=== PATIENT | female | born 1990 | race Caucasian/White ===

== ENCOUNTER → 2018-01-16 16:30 | Outpatient (CLI) | payer OTHER, SELFPAY ==
--- NOTE | 2018-01-16 16:36 | CT_ITS ---
STUDY: CT MAXILLOFACIAL SINUSES REASON FOR EXAM: Female, 27 years old. Maxillary sinusitis RADIATION DOSAGE (If Supplied By Facility): CTDIvol = ( 33.06 ) mGy, DLP = ( 850.38 ) mGycm TECHNIQUE: The patient was scanned in a multi detector CT scanner. High resolution axial imaging was performed without the administration of intravenous contrast material. Sagittal and coronal images were reconstructed. Individualized dose optimization techniques were used for this CT. COMPARISON: None. FINDINGS: FRONTAL SINUSES: Not pneumatized consistent with normal developmental variant ETHMOIDAL SINUSES: There is mild mucosal thickening within the left anterior and mid ethmoid air cells without air-fluid levels. The right ethmoid air cells are clear. MAXILLARY SINUSES: There is minimal mucosal thickening of the medial wall the right maxillary sinus without air-fluid level. Left maxillary sinus is well aerated without appreciable mucosal thickening SPHENOIDAL SINUSES: There is mild mucosal thickening of left sphenoid sinus. There is patency of the bilateral maxillary infundibuli with normal uncinate processes, ethmoid bullae, and hiatus semilunaris. There is paradoxical configuration of the middle turbinates in association with lanny bullosa deformities. Normal bilateral inferior turbinates. Normal midline nasal septum. There is patency of the bilateral nasal airways. The visualized osseous structures are normal. The visualized bilateral orbital contents are normal. CT/Sinus/Facial Bone IMPRESSION: Minor right maxillary and left ethmoid and sphenoid sinus disease Electronically Signed: Shawn Razo MD at 23:28 EDT , Service support ,
== END ==
PROVIDERS: Family Provider Family Medicine; PCP Family Medicine; Visit Provider Otolaryngology
DX: J32.9 Chronic sinusitis, unspecified (principal)
CPT/HCPCS: 70486

== ENCOUNTER → 2018-03-27 11:41 | Outpatient (CLI) | payer OTHER, SELFPAY ==
[2018-04-01 09:11] LABS: HPV Reflexed? NOT INDICATED
== END ==
PROVIDERS: Visit Provider Obstetrics & Gynecology
DX: Z12.4 Encounter for screening for malignant neoplasm of cervix (principal)
CPT/HCPCS: 88175; G0145

== ENCOUNTER → 2019-11-25 | Outpatient (CLI) | payer BC, SELFPAY ==
[2019-11-25 18:20] LABS: Chlamydia Trachomatis by PCR Negative (Negative); Neisserai gonorrhoeae by PCR Negative (Negative); Probe Check PASS; Sample Adequacy Control PASS; Specimen Processing Control PASS
== END | disposition home or self-care (01) ==
LOC: LABSPEC 14:25
PROVIDERS: PCP Family Medicine; Visit Provider Obstetrics & Gynecology
DX: Z11.3 Encounter for screening for infections with a predominantly sexual mode of transmission (principal)
CPT/HCPCS: 87491; 87591

== ENCOUNTER → 2019-12-23 10:18 | Outpatient (CLI) | payer BC, SELFPAY | PROVIDERS: PCP Family Medicine; Referring Provider Obstetrics & Gynecology; Visit Provider Obstetrics & Gynecology | DX: O26.899 Other specified pregnancy related conditions, unspecified trimester (principal); R19.7 Diarrhea, unspecified; Z3A.09 9 weeks gestation of pregnancy | CPT/HCPCS: 87177; 87209; 87493; 87506 ==

== ENCOUNTER → 2019-12-31 | Outpatient (CLI) | payer BC, SELFPAY ==
[2019-12-31 17:51] LABS: Absolute Lymphocyte Count 2.42 X10^3/uL (0.83-4.51); Absolute Neutrophil Count 5.4 X10^3/uL (2.0-7.7); Basophil# 0.02 X10^3/uL; Basophil% 0.2 % (0-1); Eosinophil# 0.03 X10^3/uL; Eosinophils% 0.4 % (0-5); Hematocrit 35.5 % (37-47); Hemoglobin 12.3 g/dL (12.0-15.0); Lymphocyte # 2.42 X10^3/ul (4.0); Mean Corp Hgb Conc 34.6 g/dL (32-36); Mean Corpuscular Hgb 31.7 pg (27.0-32.0); Mean Corpuscular Volume 91.5 fL (81-99); Mean Platelet Vol. 10.2 fl (6.2-12.0); Monocyte# 0.41 X10^3/uL; Monocyte% 4.9 % (0-10); NRBC Flagged by Analyzer 0 % (0-5); Neutrophil # 5.44 X10^3/uL (2.7-7.7); Neutrophil % 65.3 % (47-70); Platelet Count 300 K/mm3 (150-450); RBC Distribution Width CV 11.6 % (11.6-14.6); RBC Distribution Width SD 38.7 fl (35.1-43.9); Red Blood Count 3.88 M/mm3 (4.2-5.4); White Blood Count 8.3 K/mm3 (4.4-11.0)
[2019-12-31 19:20] LABS: COTININE Drug Screen Negative (<200 ng/mL)
[2020-01-01 08:55] LABS: Hepatitis B Surface Antigen Non-Reactive (Nonreactive); Rubella IgG 153.4 IU/mL
[2020-01-04 17:54] LABS: Thyroid Stim Hormone (TSH) 0.58 uIU/mL (0.358-3.74)
[2020-01-05 09:49] LABS: HIV - WCH Non-Reactive (Nonreactive); Hepatitis C Antibody Non-Reactive (Nonreactive)
[2020-01-07 00:52] LABS: Prenatal RPR NONREACTIVE (NONREACTIVE)
== END | disposition home or self-care (01) ==
PROVIDERS: PCP Family Medicine; Referring Provider Obstetrics & Gynecology; Visit Provider Obstetrics & Gynecology
DX: Z34.81 Encounter for supervision of other normal pregnancy, first trimester (principal)
CPT/HCPCS: 80307; 84443; 85025; 86703; 86762; 86803; 86850; 86900; 86901; 87340

== ENCOUNTER → 2020-04-27 09:39 | Outpatient (CLI) | payer BC, SELFPAY ==
[2020-04-27 10:50] LABS: Hematocrit 34.2 % (37-47); Hemoglobin 11.3 g/dL (12.0-15.0); Mean Corpuscular Hgb 32.3 pg (27.0-32.0); Mean Corpuscular Volume 97.7 fL (81-99); Mean Platelet Vol. 9.8 fl (6.2-12.0); Platelet Count 280 K/mm3 (150-450); RBC Distribution Width CV 12.1 % (11.6-14.6); White Blood Count 10.4 K/mm3 (4.4-11.0)
[2020-04-27 10:57] LABS: Glucose Challenge Gest 1H 50g 100 mg/dL (70-140)
== END ==
PROVIDERS: PCP Family Medicine; Visit Provider Obstetrics & Gynecology
DX: Z34.83 Encounter for supervision of other normal pregnancy, third trimester (principal)
CPT/HCPCS: 36415; 82950; 85027

== ENCOUNTER → 2020-06-08 10:53 | Outpatient (CLI) | payer BC, SELFPAY ==
[2020-06-08 11:37] LABS: Fetal Fibronectin Negative
== END ==
PROVIDERS: PCP Family Medicine; Visit Provider Obstetrics & Gynecology
DX: O26.899 Other specified pregnancy related conditions, unspecified trimester (principal); Z3A.00 Weeks of gestation of pregnancy not specified
CPT/HCPCS: 82731

== ENCOUNTER → 2020-06-29 13:45 | Outpatient (CLI) | payer BC, SELFPAY | PROVIDERS: PCP Family Medicine; Visit Provider Obstetrics & Gynecology | DX: Z36.85 Encounter for antenatal screening for Streptococcus B (principal) | CPT/HCPCS: 87077; 87081; 87186 ==

== ENCOUNTER → 2020-07-15 09:25 | Outpatient (CLI) | payer BC, SELFPAY | PROVIDERS: Referring Provider Obstetrics & Gynecology; Visit Provider Obstetrics & Gynecology | DX: Z11.59 Encounter for screening for other viral diseases (principal) | CPT/HCPCS: 87635; C9803; U0003 ==

== ENCOUNTER 2020-07-19 07:00 | Inpatient (IN) | payer BC, SELFPAY ==
[2020-07-19] VITALS (44 sets, daily range): BP systolic 90–133; BP diastolic 53–82; PULSE 56–91; TEMP 36.4–37.2; O2SAT 95–100; BMI 35.9
[2020-07-19] MEDS: 0.9% Saline Lock 10 ML Syringe IV ×4 (08:15→22:26)
[2020-07-19] MEDS: miSOPROStol 25 MCG TABLET PO ×2 (08:32→12:47)
[2020-07-19 08:40] LABS: Absolute Lymphocyte Count 2.13 X10^3/uL (0.83-4.51); Absolute Neutrophil Count 8.6 X10^3/uL (2.0-7.7); Basophil# 0.03 X10^3/uL; Basophil% 0.3 % (0-1); Eosinophil# 0.04 X10^3/uL; Eosinophils% 0.3 % (0-5); Hematocrit 32.6 % (37-47); Lymphocyte # 2.13 X10^3/ul (4.0); Lymphocyte % 18.3 % (19-41); Mean Corp Hgb Conc 33.7 g/dL (32-36); Mean Corpuscular Hgb 32.2 pg (27.0-32.0); Mean Corpuscular Volume 95.3 fL (81-99); Mean Platelet Vol. 10.6 fl (6.2-12.0); Monocyte# 0.69 X10^3/uL; Monocyte% 5.9 % (0-10); NRBC Flagged by Analyzer 0 % (0-5); Neutrophil # 8.64 X10^3/uL (2.7-7.7); Neutrophil % 74.4 % (47-70); Platelet Count 279 K/mm3 (150-450); RBC Distribution Width CV 12.1 % (11.6-14.6); RBC Distribution Width SD 42.2 fl (35.1-43.9); Red Blood Count 3.42 M/mm3 (4.2-5.4); White Blood Count 11.6 K/mm3 (4.4-11.0)
--- NOTE | 2020-07-19 09:27 | PCM.HP.BLA ---
History and Physical Date of Admission: 07/19/20 AC ANTEPARTUM RECORD - HISTORY AND PHYSICAL (07/19/2020) Name: RUPAL [place] OB Physician: MARIA LUISA [place]'s Physician: [facility] ...................................................................... : 1990 Age: 29 Address: [address] [place] [address] Phone: [phone] Insurance Carrier: DAMI [employer] [facility] [id number] Emergency Contact: PRISCILLA POWELL [phone] ...................................................................... Final TRAVIS: 07/24/20 By Ultrasound: 10 weeks 4 days History of This : This is a 29-year-old G1, P0 who presents for induction at 39 weeks and 2 days gestation. PARITY: (G-Total Pregnancies P-Fullterm,Premature,Induced AB,Spont AB, Ectopics, Multiple,Living) TRAVIS CONFIRMATION: By LMP: 10/18/19 Final TRAVIS: 07/24/20 OB PROBLEM LIST: Anxiety, hx of depression -Watch closely FOB was born with a hole in his lung? Likely to bottle feed Nausea and emesis - Did not like Zofran but sx improved with Phenergan PCN intolerance Wants MSAFP testing, declines CF Watch weight! 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 Illicit Drug Use - denies use of street drugs Sexual Activity - Hours Worked - 40 hours per week Spouse-Sig Other Name - Rex Flood Spouse-Sig Other Occupation - Retail Children Name(s) - na PRIOR DELIVERY HISTORY DEL DATE GEST LAB WT LB WT OZ TYPE ANES LABOR TX ANTEPARTUM FLOW CHART VISIT GE RTC FU F F NH U U DATE WK MD WKS HT PN HR M SS BP ED WT NH GL D EF ST __ ____ ___ __ __ ___ __ __ __ ___ __ __ __ ___ __ Jun JM 6 38 V + + 122/76 1+ 207 tr - 14 Jun JMW 1 37 V + + 120/84 1+ 202 tr - S 07 Jun JMW 1 36 V + + 126/84 sl 201 tr - 1 50 -2 01 Jun 35 JMW 1 35 + + 110/80 sl 198 tr - 16 May JMW 2 33 V + + 112/72 0 190 tr - ft 50 -2 May 22 JMW 3 31 + + 106/82 0 187 - - 05 May 19 JMW 3 27 + + 122/76 0 182 - - Apr 14 JMW 4 24 + + 122/70 0 176 - - 10 Mar 11 JMW 4 20 + + 110/72 0 169 tr - February 04 JMW 4 15 + US 118/76 0 166 - - February 03 JMW 4 15 + 98/60 0 167 - - Dec 31 JMW 4 + O 124/64 0 165 - - ANTEPARTUM NOTE(S): Jul 14 2020: Jul 06 2020: see note, Good FM Jun 29 2020: Jun 23 2020: feeling well., Good FM Jun 08 2020: FFN done. Ctxs unchanging and mild. May 19 2020: 1st trimester sx's Apr 27 2020: CBC,OGCT Today,Good FM,Feeling Well Mar 30 2020: Glucola/Instructions Given,Good FM Mar 02 2020: Sono Today,Good FM,Feeling Well Feb 01 2020: Sono Today due to brown discharge,Feeling Well Jan 29 2020: see note, Doing Well Dec 31 2019: US OK COMPREHENSIVE ANTEPARTUM NOTE(S): Jul 14 2020: Rupal is being seen for PNV. Pt is 38 w + 4 d.. She complains of feeling very uncomfortable and vaginal pressure. She has 1+ edema in feet and hands . + FM. States that she has a high sensitivity to Penicillin she has N with it. SVE offered PT declined. No other complaints or concerns expressed today. LJW Jul 14 2020: 38wk, maternal discomfort. Leg swelling. Desires 39wk IOL, scheduled for 07/18/20 at 1900. COVID testing ordered. Jul 12 2020: H taken to OB. tkg Jul 06 2020: Rupal is being seen for PNV. Pt is 37 weeks and 3 days. She complains of diarrhea, cramping and vaginal pressure that started about 24 hours ago. Cervix check. AM Jun 29 2020: Rupal is here for visit. Baby active tho some days a bit less. Tops of feet puffy and slight edema up shins. LARC explained, declined and signed. No Childbirth classes. Suggested virtual tour of on line. Enc to preregister and how to do so. Having some numbness, swelling in hands megha. Plans to bottlefeed. Suggestions made for pillows/sm rolled blankets to increase comfort. Aware of GBS today. JOY. Jun 08 2020: Rupal is here for her 33 w + 3 d PNV today. She has good FM. No edema. Reports that she is having lower abdominal cramping that radiates upward to the top of her belly. She does not have any spotting. Informed her that LARC and GBS is due at next visit. No other questions or concerns expressed today. Medications and allergies reviewed today. ADELAIDA Jun 08 2020: FFN negative. May 19 2020: Rupal is here for SO for a PNV. Good FM. No edema. Complaints of 1st trimester symptoms. Nausea, fatigue, insomnia, and headaches present. Denies blurred vision and vomiting. No other concerns expressed. MK Jan 31 2020: Call Msg from 9:[address] this morning[address] Pt of Dr[address] Saini. Rupal's calling @ 15 wks with concern of brown spotting the past 2 days. When asked if she is cramping, replies very slight. Denies IC the past few days. US done @ 10 wks 4 days indicated no mention of any type of potential bleed. Advised brown is less worrisome than bright red. NO IC for now. Would expect this to subside. Take it easy for the next few days. To call back if she would have red spotting and / or cramping. Will check on her later today. Call back to uRpal @ 6:30 PM this evening ...how is she doing? Still having brown spotting only on toilet tissue when using the bathroom, has not had to wear a pad. Reports last IC months ago. Has not done any activities other than being active in her home. Still having slight cramping. Again advised no IC with brown spotting. To call the office tomorrow and can check ua since cramping. Again more reassurring this is brown and not red. Will advise if wants anything different tomorrow. Jan 29 2020: Rupal is here for a PNV. She is doing well. No edema. Reports that her nausea is still present but has improved. She uses the Phenergan sparingly. Pt has been walking as she says it helps her nausea as well. No complaints or concerns expressed at this time. Jan 04 2020: Telehealth NOB visit completed-54 minutes on phone. Rupal is contacted for NOB visit. She is a G1 with complicating nausea early in . She relates feeling much better since switched from the Zofran to Phenergan. States she gets a little tired but otherwise this has helped significantly. Zofran caused significant cramping and stomach upset. She is working from home right now. Following quarantine guidelines. does work at [employer] but he changes and showers as soon as he gets home. She relates a history of situational depression and is a little concerned about depression. We will keep in close contact with her regarding her sx. She relates she has not yet felt real excited about the . Voices understanding from her clinical thinking that since she has not felt very well and this may contribute to lesser excitement over the . Discussed that this can be pretty normal. This may be especially noticed for those who really understand the impact of having a baby. Understanding how much this changes your life and it will be a forever change. She feels that all the changes now are within her and cannot share in this. She feels that sx are going to improve as she is able to exercise more and get back to walking and yoga. 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 She will have MSAFP and if anything seems abnormal she will consider further testing. She declines CF testing. cfDNA testing reviewed along with genetic counseling, MFM referral if desires. Only thing she relates is that her was born with a hole in his lung and does not know much about his father's side of the family. We discussed and she is not very interested in this. She is open to consider but feels that it may not be a good idea for her as she likes to control things and feels that if she fails this would be devastating to her. She also feels that the pressure of being the main food source might be overwhelming for her. She feels sharing the feedings with her would be helpful. Advised we will offer support to her no matter what she decides. We discussed exercise recommendations of 30 minutes 5x/wk. Increase in po fluids, healthy diet with lean meats, complex carb's, more veggies than fruit. panel reviewed but several labs not back yet. Confirmed with lab that several tests are missing and TSH, HIV, Hep C will be added at no extra charge to patient. NOB visit completed, chart is updated and consents already completed and in chart. LMT Dec 31 2019: Phenergan helping w/nausea. She has had no vomiting. She thinks she has gained some wt back as she has been feeling somewhat better. Genetics questionnaire completed showing nothing significant only having used Zofran and Phenergan in . [place] Depression Questionnaire completed showing 06/22, denies Sx Depression, states Anxiety now. Was on Zoloft in 2016 for a situational depression. 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 Consent for genetics testing signed indicating she wants this. labs drawn today. kbm Nov 25 2019: ok Nov 25 2019: Rupal presents for her Missed Menses kam't. She is a 29yo G 1 with an LMP of 10/18/19, and TRAVIS by LMP of 07/24/20. This is the first for her and she is very excited with a good support system. She is a non smoker. Pt is taking OTC PNV's. No questions or concerns voiced. NOB packet given. JT REVIEW OF SYSTEMS: GENERAL - Denies fever, or chills SKIN - Denies rash, new skin lesions, or change in moles EYES - Denies blurred vision, or change in visual acuity EARS - Denies ear pain, or difficulty hearing NOSE - Denies nasal congestion, discharge, or bleeding MOUTH - Denies sore throat, or difficulty swallowing NECK - Denies pain or swelling RESPIRATORY - Denies shortness of breath, cough, wheezing CARDIOVASCULAR - Denies palpitations, chest pain, orthopnea, PND, peripheral edema, syncope or claudication GASTROINTESTINAL - Denies nausea, vomiting, diarrhea, constipation, Denies abdominal pain, melena and or bright red blood GENITOURINARY - Denies dysuria, frequency of urination, urgency, or hesitancy MUSCULOSKELETAL - Denies joint or muscle pain, or back pain NEUROLOGICAL - Denies localized numbness, weakness, or tingling PSYCHIATRIC - Denies depression, anxiety, substance abuse or suicide attempts ENDOCRINE - Denies heat or cold intolerance, weight loss or gain, increasing thirst HEMATO-IMMUNOLOGIC - Denies easy bruising, bleeding, oral ulcerations or recurrent infections GENETICS SCREENING: Age 35+ years: No Thalassemia: No Neural Tube Defect: No Down Syndrome: No URBANO-SACHS: No Sickle Cell Disease: No Hemophilia: No Musc. Dystrophy: No Cystic Fibrosis: requests screening [place] Chorea: No Mental Retardation: No Fragile X: No Other genetic: No Other defects: No SABs/still births: No Drugs since LMP: No INFECTION HISTORY: High risk AIDS: No High risk Hepatitis: No Exposed to TB: No Exposed to Herpes: No Rash/viral illness since LMP: No History of STD: No MENSTRUAL HISTORY: *Menses Amount/Duration: 4 daysMenses Regularity: RegularFrequency: 27Menarche (Age Onset): 11* PAST SUMMARY: PARITY: 1. Total Pregnancies............ 1 2. Full Term Pregnancies........ 0 3. Premature.................... 0 4. Abortions - Induced.......... 0 5. Abortions - Spontaneous...... 0 6. Ectopics..................... 0 7. Multiple Births.............. 0 8. Living Children.............. 0 PHYSICAL EXAMINATION General Appearence: 29 yo female in no acute distress Vital Signs: AF, VSS Heart: RRR without rubs or gallops Lungs: CTA x 2 Breasts: deferred Abdomen: gravid Pelvis: Cervix: Presentation: cephalic Station: Fetus: Size: AGA Movement: present Heart: present Labs for : RUPAL POWELLLluviaFLOOD since 10/28/2019 ORDER DATEIN DESCRIPTION VALUE UNITS RANGE A+ COMMENT CBC W/DIFF, AUTOMATED 07/19/20 NOTE Original Ordering Provider: Andrea Saini WBC 11.6 K/mm3 4.4-11.0 H RBC 3.42 M/mm3 4.2-5.4 L HGB 11.0 g/dL 12.0-15.0 L HCT 32.6 % 37-47 L MCV 95.3 fL 81-99 MCH 32.2 pg 27.0-32.0 H MCHC 33.7 g/dL 32-36 RDW CV 12.1 % 11.6-14.6 RDW SD 42.2 fl 35.1-43.9 PLT 279 K/mm3 150-450 MPV 10.6 fl 6.2-12.0 NEUT% 74.4 % 47-70 H LY% 18.3 % 19-41 L MONO% 5.9 % 0-10 EO% 0.3 % 0-5 BASO% 0.3 % 0-1 IM GRAN % 0.800 % 0.0-0.9 IG% - Immature Granulocytes (promyelocytes, myelocytes and metamyelocytes) > 1% indicates that a LEFT SHIFT is Present. ABSOLUTE NEUT 8.6 X10 3/uL 2.0-7.7 H ABSOLUTE LYMPH 2.13 X10 3/uL 0.83-4.51 NRBC, FLAGGED 0 % 0-5 CORONAVIRUS 19, NAGA SENDOUT 07/15/20 NOTE Original Ordering Provider: Josh Polanco COVID-19,NAGA Not Detected Not Detected This nucleic acid amplification test was developed and its performance characteristics determined by [employer]. Nucleic acid amplification tests include PCR and TMA. This test has not been FDA cleared or approved. This test has been authorized by FDA under an Emergency Use Authorization (EUA). This test is only authorized for the duration of time the declaration that circumstances exist justifying the authorization of the emergency use of in vitro diagnostic tests for detection of SARS-CoV-2 virus and/or diagnosis of COVID-19 infection under section 564(b)(1) of the Act, 21 U.S.C. 360bbb-3(b) (1), unless the authorization is terminated or revoked sooner. When diagnostic testing is negative, the possibility of a false negative result should be considered in the context of a patient's recent exposures and the presence of clinical signs and symptoms consistent with COVID-19. An individual without symptoms of COVID-19 and who is not shedding SARS-CoV-2 virus would expect to have a negative (not detected) result in this assay. CULTURE, GROUP B STREPTOCOCCUS 06/29/20 NOTE Original Ordering Provider: Andrea BARKER Culture ORGANISM 1: Streptococcus agalactiae (B) Amount Growth Growth Streptococcus agalactiae (B): REACTION Ampicillin $ <=0.25 S Benzylpenicillin NF 0.12 S Ceftriaxone $ <=0.12 S Clindamycin $$ <=0.25 S Inducable Clindamycin Resistan NEG Linezolid $$$$ <=2 S Vancomycin $ 0.5 S Reference Range: S= Susceptible, I= Intermediate, R= Resistant MICS are expressed in micrograms per mL (NF) indicates non-formulary drug at [facility]. Approval by Infectious Disease Specialist required before non-formulary drugs may be ordered and/or dispensed. Testing performed on Vitek 2 instrument Reviewed by ANDREA Reviewed by ANDREA FIBRONECTIN 06/08/20 NOTE Original Ordering Provider: Andrea Saini FFN Negative Reviewed by ANDREA GLUCOSE CHALLENGE GEST 1H 50G 04/27/20 NOTE Original Ordering Provider: Andrea Saini GLU GEST 50G 1H 100 mg/dL 70-140 Reviewed by ANDREA CBC-COMPLETE BLOOD CNT NO DIFF 04/27/20 NOTE Original Ordering Provider: Andrea Saini WBC 10.4 K/mm3 4.4-11.0 RBC 3.50 M/mm3 4.2-5.4 L HGB 11.3 g/dL 12.0-15.0 L HCT 34.2 % 37-47 L MCV 97.7 fL 81-99 MCH 32.3 pg 27.0-32.0 H MCHC 33.0 g/dL 32-36 RDW CV 12.1 % 11.6-14.6 RDW SD 43.0 fl 35.1-43.9 PLT 280 K/mm3 150-450 MPV 9.8 fl 6.2-12.0 Reviewed by ANDREA URINE DRUG SCREEN (VISTA) 04/27/20 NOTE Original Ordering Provider: Andrea Weeman TO BE CONFIRMED CONFIRMATORY TESTING FOR ALL POSITIVE URINE DRUG SCREEN RESULTS WILL ONLY BE SENT OUT UPON PHYSICIAN ORDER. VISTA Urine Drug Screen methods provide only preliminary analytical test results. A more specific alternate chemical method must be used in order to obtain a confirmed analytical result. Gas chromatography/mass spectrometery (GC/MS) is the preferred confirmatory method. Clinical consideration and professional judgement should be applied to any drug of abuse test result, particularly when preliminary positive results are used. URINE TCA TESTING MUST BE ORDERED SEPARATELY. USE TEST MNEMONIC: UTCA Reviewed by ANDREA THYROID STIM HORMONE (TSH) 01/04/20 NOTE Original Ordering Provider: Andrea Saini TSH 0.58 uIU/mL 0.358-3.74 Reviewed by KORY Reviewed by ANDREA RPR 12/31/19 NOTE Original Ordering Provider: Andrea Saini RPR NONREACTIVE NONREACTIVE Reviewed by ANDREA HEPATITIS C ANTIBODY 12/31/19 NOTE Original Ordering Provider: Andrea Saini HEPATITIS C AB Non-Reactive Nonreactive Non Reactive: < 0.8 Equivocal: >/= 0.8 to < 1.0 Reactive: >/= 1.0 The CDC recommends that a reactive/equivocal HCV antibody result be followed up by the HCV Nucleic Acid Amplification test ([id number]) Reviewed by ANDREA HEPATITIS B SURFACE ANTIGEN 12/31/19 NOTE Original Ordering Provider: Andrea Saini HEPB SURFACE AG Non-Reactive Nonreactive Reviewed by ANDREA HIV - [facility] 12/31/19 NOTE Original Ordering Provider: Andrea Saini HIV - [facility] Non-Reactive Nonreactive Reviewed by ANDREA RUBELLA IGG 12/31/19 NOTE Original Ordering Provider: Andrea Saini RUBELLA IGG 153.4 IU/mL Antibody results Interpretation of Immune Status < 5 IU/ml Presumed Non-immune 5 - < 10 IU/ml Equivocal > or = 10 IU/ml Presumed Immune Reviewed by ANDREA Reviewed by KORY Reviewed by KORY Reviewed by KORY Reviewed by KORY NICOTINE URINE DRUG SCREEN 12/31/19 NOTE Original Ordering Provider: Andrea Saini TO BE CONFIRMED CONFIRMATORY TESTING FOR ALL POSITIVE URINE DRUG SCREEN RESULTS WILL ONLY BE SENT OUT UPON PHYSICIAN ORDER. The results of Urine Drug Screen methods provide only preliminary analytical test results. A more specific alternate chemical method must be used in order to obtain a confirmed analytical result. Gas chromatography/mass spectrometery (GC/MS) is the preferred confirmatory method. Clinical consideration and professional judgement should be applied to any drug of abuse test result, particularly when preliminary positive results are used. COT DRG SCREEN Negative <200 ng/mL Cotinine is the first-stage metabolite of Nicotine. Reviewed by KORY TYPE AND SCREEN 12/31/19 Reason for Type AND Screen/Red Cells: Surgery? N [facility]~[address] [place], [id number]~ BLOOD TYPE GEL O POSITIVE N ANTIBODY SCREEN NEGATIVE N Reviewed by KORY CBC W/DIFF, AUTOMATED 12/31/19 NOTE Original Ordering Provider: Andrea Saini WBC 8.3 K/mm3 4.4-11.0 RBC 3.88 M/mm3 4.2-5.4 L HGB 12.3 g/dL 12.0-15.0 HCT 35.5 % 37-47 L MCV 91.5 fL 81-99 MCH 31.7 pg 27.0-32.0 MCHC 34.6 g/dL 32-36 RDW CV 11.6 % 11.6-14.6 RDW SD 38.7 fl 35.1-43.9 PLT 300 K/mm3 150-450 MPV 10.2 fl 6.2-12.0 NEUT% 65.3 % 47-70 LY% 29.0 % 19-41 MONO% 4.9 % 0-10 EO% 0.4 % 0-5 BASO% 0.2 % 0-1 IM GRAN % 0.200 % 0.0-0.9 IG% - Immature Granulocytes (promyelocytes, myelocytes and metamyelocytes) > 1% indicates that a LEFT SHIFT is Present. ABSOLUTE NEUT 5.4 X10 3/uL 2.0-7.7 ABSOLUTE LYMPH 2.42 X10 3/uL 0.83-4.51 NRBC, FLAGGED 0 % 0-5 Reviewed by KORY OVA AND PARASITES [id number] 12/23/19 NOTE Original Ordering Provider: Andrea Saini O + P [id number] OVA AND PARASITES EXAM, ROUTINE These results were obtained using wet preparation(s) and trichrome stained smear. This test does not include testing for Crytosporidium parvum, Cyclospora, or Microsporidia. One negative specimen does not rule out the possibility of a parasitic infection. TESTING PERFORMED AT [facility]. ORIGINAL REPORT ON FILE IN LAB CONTAINS ADDITIONAL TEST SITE INFORMATION. Ova/Parasite Exam NO OVA, CYSTS, OR PARASITES FOUND. Reviewed by ANDREA GALLOWAY (MOLECULAR) 12/23/19 NOTE Original Ordering Provider: Andrea Munozff-Molecular A positive C. difficile molecular test does not differentiate between an active C. difficile infection and C. difficile colonization. Use clinical judgement and paired toxin/antigen testing to identify true infection and need for treatment. Reference Range: Negative C. Diff DNA Negative- No toxigenic C. Diff DNA Detected Reviewed by ANDREA ENTERIC PATHOGEN PANEL STOOL 12/23/19 NOTE Original Ordering Provider: Andrea Saini EP PANEL STOOL Normal Reference Range = Not Detected Not detected for Campylobacter group, Salmonella species, Shigella species, Vibrio Group, Yersinia enterocolitica, EHEC (Shiga Toxin 1, Shiga Toxin 2), Norovirus Gl/Gll, and Rotavirus A. Other common stool pathogens are not detected on this panel include: Aeromonas/Plesiomonas or parasites. Order testing for these organisms separately if suspected. This is an amplified DNA test which makes it both specific and sensitive. CAMPYLOBACTER Not Detected Salmonella Not Detected Shigella sp. Not Detected Shiga Toxin Not Detected Yersinia Not Detected VIBRIO Not Detected Norovirus Not Detected Rotavirus Not Detected Reviewed by ANDREA CT/HARMEET [facility] BY PCR 11/25/19 NOTE Original Ordering Provider: Andrea Saini CHLAM TRAC PCR Negative Negative NG BY PCR Negative Negative Reviewed by ANDREA Impression /Plan: 39-week 2-day gestation for elective induction. Plan Cytotec then rupture of membranes. Preparations in progress for delivery.
[2020-07-19] MEDS: Lactated Ringers 1,000 ML 50 ML IV (17:45)
[2020-07-19] MEDS: Lactated Ringers 500 ML 999 ML IV (18:43)
[2020-07-19] MEDS: fentaNYL-bupivacaine (epidural) 100 ML BAG EPIDURAL ×2 (19:37→23:42)
[2020-07-19] MEDS: Oxytocin 30 units/NS 500 ml 30 UNITS/500 ML IV.SOLN IV (20:10)
[2020-07-19] MEDS: Lactated Ringers 1,000 ML 200 ML IV (23:30)
[2020-07-20] VITALS (29 sets, daily range): BP systolic 100–144; BP diastolic 57–79; PULSE 60–104; RESP 16–18; TEMP 36.2–37.4; O2SAT 92–100
[2020-07-20] MEDS: fentaNYL-bupivacaine (epidural) 100 ML BAG EPIDURAL ×2 (04:30→09:20)
[2020-07-20] MEDS: 0.9% Saline Lock 10 ML Syringe IV (04:39)
[2020-07-20] MEDS: Ondansetron 4 MG/2 ML Vial IV (04:39)
[2020-07-20] MEDS: Lactated Ringers 1,000 ML 200 ML IV (09:20)
[2020-07-20] MEDS: Oxytocin 30 units/NS 500 ml 30 UNITS/500 ML IV.SOLN 334 UNITS IV (11:01)
[2020-07-20] MEDS: Methylergonovine 0.2 MG/ML Ampul IM (11:04)
--- NOTE | 2020-07-20 11:11 | OP.PCM_ITS ---
Vaginal Delivery Maternal Presentation: Elective Induction Method of Induction: Amniotomy, Cytotec Amniotic Membrane Rupture Type: Artificial Amniotic Fluid Description: Clear Final TRAVIS: 07/24/20 Final TRAVIS Source: US <20 weeks Gestational age: 39 Weeks and 3 Days Date of Procedure: 07/20/20 Pre-Operative Diagnosis: IUP Post-Operative Diagnosis: IUP Surgery/ Procedure Performed: Vacuum Assisted Vaginal Delivery Type of Anesthesia: Epidural Description of Procedure: Spontaneous vaginal delivery of a viable female with Apgars of 9/9 from an occiput anterior presentation with clear amniotic fluid and normal three- vessel placenta. No episiotomy. Second-degree midline laceration repaired with 3-0 Rapide suture under epidural anesthesia. Kiwi vacuum used x4 gentle pulls from low outlet to expedite delivery of the head after 4 hours of pushing and increasing maternal fatigue. 1 pop-off. Sponges okay. Delivery physician: Balaji Saini MD. Presentation: Vertex Placental Delivery Description: Spontaneous Placenta Disposition: [facility] Cord Vessel Description: 3 Vessels Estimated Blood Loss: 250 cc A gender: Female (1 minute): 9 (5 minute): 9 Episiotomy Description: None Laceration: Midline, 2nd degree Medications given after delivery: IV Pitocin, IM Methergin Complications: None
--- NOTE | 2020-07-20 11:14 | DCINST_ITS ---
<Balaji Saini - Last Filed: 07/20/20 11:14> Discharge Diet: No Restrictions Discharge Activity: May Shower, May Take a Tub Bath May resume sexual activity in: 4-6 weeks Additional Activity Instructions:: Nothing in the vagina for 4-6 weeks. You may return to work/school in 6 weeks. Call your doctor if you observe: Inability to urinate, Inability to have a bowel movement, Using more than one pad per hour Additional Instructions: If you experience any of the following, contact your healthcare provider. * Bleeding that soaks a pad every hour for 2 hours * Fever 100.4 or higher * Unrelieved incision or abdominal pain * Swelling, redness, discharge or bleeding from your incision or episiotomy site * Your incision begins to separate * Problems urinating (including inability to urinate or burning while urinating). * Visual changes * Severe headache * Flu-like symptoms * Pain or redness in one of both of your breasts * Pain, warmth, tenderness or swelling in your legs, especially the calf area * Frequent nausea and vomiting * Symptoms of depression or anxiety If you experience any of the following, call 911 or go to the nearest Emergency Room. * Chest pain * Problems breathing * Seizure activity * Partial or complete paralysis of a body part, slurred speech, weakness or drooping of the face, or a sudden inability to walk or hold your balance Allergies/Adverse Reactions: Allergies Penicillins Adverse Reaction (Verified 07/19/20 07:40) Nausea/Vom/Diarrhea Medications to take at Discharge Tablet 1 tab PO DAILY 07/19/20 Norgestimate-Ethinyl Estradiol [Sprintec 28 Day Tablet] 1 ea PO DAILY #28 tab 07/22/20 The following prescriptions were given: Norgestimate-Ethinyl Estradiol [Sprintec 28 Day Tablet] 1 ea PO DAILY #28 tab Transmission Status: Pending to [facility]/pharmacy #[id number] Please Follow Up With: Balaji Saini MD - [phone] When: Call to make an appointment with your doctor in 6 weeks. Primary Care Physician: Care Physician,No Primary [Primary Care Provider] - Test Results: Test results from this visit will be discussed in further detail at your follow- up appointment, if applicable. <Josh Polanco - Last Filed: 07/22/20 10:11> Additional Instructions: If you experience any of the following, contact your healthcare provider. * Bleeding that soaks a pad every hour for 2 hours * Fever 100.4 or higher * Unrelieved incision or abdominal pain * Swelling, redness, discharge or bleeding from your incision or episiotomy site * Your incision begins to separate * Problems urinating (including inability to urinate or burning while urinating). * Visual changes * Severe headache * Flu-like symptoms * Pain or redness in one of both of your breasts * Pain, warmth, tenderness or swelling in your legs, especially the calf area * Frequent nausea and vomiting * Symptoms of depression or anxiety If you experience any of the following, call 911 or go to the nearest Emergency Room. * Chest pain * Problems breathing * Seizure activity * Partial or complete paralysis of a body part, slurred speech, weakness or drooping of the face, or a sudden inability to walk or hold your balance Test Results: Test results from this visit will be discussed in further detail at your follow- up appointment, if applicable.
--- NOTE | 2020-07-20 11:14 | PCM.DCVAG ---
<Balaji Saini - Last Filed: 07/20/20 11:14> Discharge Diet: No Restrictions Discharge Activity: May Shower, May Take a Tub Bath May resume sexual activity in: 4-6 weeks Additional Activity Instructions:: Nothing in the vagina for 4-6 weeks. You may return to work/school in 6 weeks. Call your doctor if you observe: Inability to urinate, Inability to have a bowel movement, Using more than one pad per hour Additional Instructions: If you experience any of the following, contact your healthcare provider. Bleeding that soaks a pad every hour for 2 hours Fever 100.4 or higher Unrelieved incision or abdominal pain Swelling, redness, discharge or bleeding from your incision or episiotomy site Your incision begins to separate Problems urinating (including inability to urinate or burning while urinating). Visual changes Severe headache Flu-like symptoms Pain or redness in one of both of your breasts Pain, warmth, tenderness or swelling in your legs, especially the calf area Frequent nausea and vomiting Symptoms of depression or anxiety If you experience any of the following, call 911 or go to the nearest Emergency Room. Chest pain Problems breathing Seizure activity Partial or complete paralysis of a body part, slurred speech, weakness or drooping of the face, or a sudden inability to walk or hold your balance Allergies/Adverse Reactions: Allergies Penicillins Adverse Reaction (Verified 07/19/20 07:40) Nausea/Vom/Diarrhea Medications to take at Discharge Tablet 1 tab PO DAILY 07/19/20 Norgestimate-Ethinyl Estradiol [Sprintec 28 Day Tablet] 1 ea PO DAILY #28 tab 07/22/20 The following prescriptions were given: Norgestimate-Ethinyl Estradiol [Sprintec 28 Day Tablet] 1 ea PO DAILY #28 tab Transmission Status: Pending to [facility]/pharmacy #[id number] Please Follow Up With: Balaji Saini MD - [phone] When: Call to make an appointment with your doctor in 6 weeks. Primary Care Physician: Care Physician,No Primary [Primary Care Provider] - Test Results: Test results from this visit will be discussed in further detail at your follow-up appointment, if applicable. <Josh Polanco - Last Filed: 07/22/20 10:11> Additional Instructions: If you experience any of the following, contact your healthcare provider. Bleeding that soaks a pad every hour for 2 hours Fever 100.4 or higher Unrelieved incision or abdominal pain Swelling, redness, discharge or bleeding from your incision or episiotomy site Your incision begins to separate Problems urinating (including inability to urinate or burning while urinating). Visual changes Severe headache Flu-like symptoms Pain or redness in one of both of your breasts Pain, warmth, tenderness or swelling in your legs, especially the calf area Frequent nausea and vomiting Symptoms of depression or anxiety If you experience any of the following, call 911 or go to the nearest Emergency Room. Chest pain Problems breathing Seizure activity Partial or complete paralysis of a body part, slurred speech, weakness or drooping of the face, or a sudden inability to walk or hold your balance Test Results: Test results from this visit will be discussed in further detail at your follow-up appointment, if applicable.
[2020-07-20] MEDS: Acetaminophen 500 MG Tablet 1000 MG PO ×2 (11:55→21:08)
[2020-07-20] MEDS: Ibuprofen 600 MG Tablet PO ×2 (12:58→18:48)
[2020-07-21] MEDS: Ibuprofen 600 MG Tablet PO ×3 (01:23→20:30)
[2020-07-21 03:46] VITALS: BP 104/59; PULSE 72; RESP 14; TEMP 36.8; O2SAT 96
[2020-07-21 07:20] VITALS: BP 106/56; PULSE 86; RESP 18; TEMP 36.4
[2020-07-21] MEDS: Acetaminophen 500 MG Tablet 1000 MG PO ×2 (07:39→16:15)
--- NOTE | 2020-07-21 07:39 | PCM.PN.OB ---
Subjective: Patient without complaints. Bleeding has slowed to a minimum. Patient is not breast-feeding but rather bottlefeeding. Plans to go home tomorrow. - Physical Exam Vitals/I&O's: Vital Signs Temp Pulse Resp BP Pulse Ox 98.3 F 72 14 104/59 L 96 07/21/20 03:46 07/21/20 03:46 07/21/20 03:46 07/21/20 03:46 07/21/20 03:46 Oxygen Delivery Method Room Air Weight: 209 lb 7.026 oz Body Mass Index (BMI) 35.9 Intake and Output for Last 24 Hours 07/19/20 07/20/20 07/21/20 23:59 23:59 23:59 Intake Total 2275.89 / 2275.89 2023.44 / 2023.44 Output Total 800 / 800 300 / 300 500 / 500 Balance 1475.89 / 1475.89 1723.44 / 1723.44 -500 / -500 Current Medications Acetaminophen (Acetaminophen 500 Mg Tablet) 1,000 mg PO Q8H PRN PRN PRN Reason: Pain Score 1-3 Last Admin: 07/20/20 21:08 Dose: 1,000 mg Documented by: Alprazolam (Alprazolam 0.5 Mg Tablet) 0.5 mg PO X1 PRN PRN Reason: ANXIETY Bisacodyl (Bisacodyl 10 Mg Suppository) 10 mg RECTAL UD PRN PRN Reason: If no BM Dibucaine (Dibucaine 30 Gm Tube) 1 applic TOPICAL TID PRN PRN; Protocol PRN Reason: Discomfort Hydrocortisone (Hydrocortisone 2.5% Crm) 1 applic TOPICAL TID PRN PRN; Protocol PRN Reason: Discomfort Ibuprofen (Ibuprofen 600 Mg Tablet) 600 mg PO Q6H PRN PRN PRN Reason: Pain Score 1-3 Last Admin: 07/21/20 01:23 Dose: 600 mg Documented by: Methylergonovine Maleate (Methylergonovine 0.2 Mg/Ml Ampul) 0.2 mg IM X1 PRN PRN Reason: Excess bleeding/uterine atony Last Admin: 07/20/20 11:04 Dose: 0.2 mg Documented by: Ondansetron HCl (Ondansetron 4 Mg/2 Ml Vial) 4 mg IV Q4H PRN PRN PRN Reason: Nausea Oxycodone HCl (Oxycodone 5 Mg Tablet) 5 - 10 mg PO Q4H PRN PRN PRN Reason: Pain Score 4-10 Senna/Docusate Sodium (Senna/Docusate Sodium 1 Tablet) 1 - 2 tablet PO DAILY PRN PRN PRN Reason: Constipation Simethicone (Simethicone 80 Mg Tablet) 80 mg PO PCHS PRN PRN Reason: Indigestion/Stomach pain Sodium Chloride (0.9% Saline Lock 10 Ml Syringe) 5 - 15 ml IV UD PRN PRN Reason: SALINE FLUSH Zolpidem Tartrate (Zolpidem Tartrate 5 Mg Tablet) 5 mg PO QHS PRN PRN PRN Reason: Insomnia Medical Necessity - Tobacco Use Smoking Status: Never smoker Assessment/Plan Doing well day #1 status post routine spontaneous vaginal delivery with vacuum assistance. Continuing present care. Anticipate release to home tomorrow if good progress continues.
[2020-07-21 16:10] VITALS: BP 104/61; PULSE 76; RESP 18; TEMP 36.4
--- NOTE | 2020-07-21 16:36 | CASEMGMT ---
Social Work Brief Assessment Labor and Delivery Unit Patient Address: [address], [place] [id number] Phone number: [phone] Date of Referral/Notification: 07/20/2020 Time of Referral: 141 Referred By: Dr. Saini Date of Intervention: 07/21/2020 Time of Intervention: 1600 Reason for Referral: Maternal history of anxiety, depression Informant: Medical record and mother of baby (MOB) Rupal Flood and father of baby (FOB) Rex Flood. History: MIRIAN is a 29-year-old female who is 1, para 0 now 1 after delivering baby girl Jennifer Flood on 07/20/2020. Delivery at 39 weeks gestation. care adequate. 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 MIRIAN endorses a history of anxiety since childhood, and then 2 episodes of depression in her adult life. MOB reports history of counseling and also medication for depression, but nothing currently. MOB reports to have a prescription for Xanax to take as needed, which MOB reports to take only a couple of times a year. No reports or indication of substance use issues for this family. No indication or reports of any type of safety issues in the home. Upon admission MOB denied any concerns for abuse in current relationship. Assessment: Met with MOB and FOB in the room. Baby sleeping in the bedside crib. Introduced to self and social work role. MOB and FOB receptive to social work visit. Pleasant, cooperative, and engaged in conversation. MOB held appropriate eye contact. Mood and affect appropriate and congruent to content discussed. Motor activity and speech within normal limits. MOB open in discussing history of anxiety, depression, and acknowledges that shortly after delivery was feeling very overwhelmed with emotions. MOB reports that today has been feeling better physically and emotionally, and is feeling rubber tubing backer to her normal self. Yesterday MOB reports starting back on antidepressants was discussed, but as of today MOB would like to take a little time and see how she does with transition home before starting medication. Explored with MOB as to what needs to happen, or how MOB would need to be feeling to consider starting back on medication. MOB reports able to manage her anxiety and to have coping skills for such, but if depressive symptoms arise this would be the point where we will consider medication. MIRIAN has a history of counseling and would consider returning back to this as well. FOB presents as a support to MOB. Discussed mood and anxiety disorder resources, and provided written material on resources and common symptoms to look for. Explored with MOB her connection with the baby. MOB does endorse caring for the baby, and believes that deeper feelings will grow. Both MOB and FOB report that change is sometimes difficult for MOB, and adjustment sometimes takes a little time. Discussed self-care techniques in the timeframe. MOB and FOB indicated to have adequate support from family and friends, including MOB having a female group of friends who all have children. MOB will be off of work until after the first of the year, and FOB will be at home on paternity leave for 6 weeks. MOB expressed appreciation for licensed clinical social worker stopping by, denies any other concerns with home-going. Spoke with nursing staff today, MOB was observed holding the baby this morning and sitting up in a chair. Plan: MOB and baby will return home at time of discharge. MOB will have FOB at home for 6 weeks to help out in this transitional time of having a baby. MOB has been provided with resources on mood and anxiety disorders. No further needs requested or indicated, though if additional needs do happen to arise prior to discharge social work does remain available. -RACHELLE Vega, GIS CONSULTANT *Information documented in this assessment generated with [employer]*
[2020-07-21 21:22] VITALS: BP 110/73; PULSE 87; RESP 16; TEMP 36.6
[2020-07-22] MEDS: Acetaminophen 500 MG Tablet 1000 MG PO ×2 (00:59→10:32)
[2020-07-22 02:00] VITALS: BP 108/60; PULSE 79; RESP 16; TEMP 36.6
[2020-07-22] MEDS: Ibuprofen 600 MG Tablet PO ×2 (02:20→08:33)
[2020-07-22 07:38] VITALS: BP 98/50; PULSE 78; RESP 16; TEMP 37.1; O2SAT 99
--- NOTE | 2020-07-22 10:09 | PCM.PN.OB ---
Subjective: No overnight complaints. Pain well controlled. Minimal lochia - Physical Exam Vitals/I&O's: Vital Signs Temp Pulse Resp BP Pulse Ox 98.8 F 78 16 98/50 L 99 07/22/20 07:38 07/22/20 07:38 07/22/20 07:38 07/22/20 07:38 07/22/20 07:38 Oxygen Delivery Method Room Air Weight: 209 lb 7.026 oz Body Mass Index (BMI) 35.9 Intake and Output for Last 24 Hours 07/20/20 07/21/20 07/22/20 23:59 23:59 23:59 Intake Total 2023.44 / 2022.44 Output Total 300 / 300 500 / 500 Balance 1723.44 / 1723.44 -500 / -500 General: Alert, Oriented x3, Cooperative, No apparent distress HEENT: Atraumatic, PERRLA, Normocephalic Oral: Moist Mucosa Neck: Supple Abdomen: Bowel Sounds Present, Soft, Non Tender, Gravid - Fundus firm and below umbilicus Extremities: No clubbing, No cyanosis, No edema Psych/Mental Status: Normal Affect, Appropriate, Alert and oriented to time, place, person, mood and affect Current Medications Acetaminophen (Acetaminophen 500 Mg Tablet) 1,000 mg PO Q8H PRN PRN PRN Reason: Pain Score 1-3 Last Admin: 07/22/20 00:59 Dose: 1,000 mg Documented by: Alprazolam (Alprazolam 0.5 Mg Tablet) 0.5 mg PO X1 PRN PRN Reason: ANXIETY Bisacodyl (Bisacodyl 10 Mg Suppository) 10 mg RECTAL UD PRN PRN Reason: If no BM Dibucaine (Dibucaine 30 Gm Tube) 1 applic TOPICAL TID PRN PRN; Protocol PRN Reason: Discomfort Hydrocortisone (Hydrocortisone 2.5% Crm) 1 applic TOPICAL TID PRN PRN; Protocol PRN Reason: Discomfort Ibuprofen (Ibuprofen 600 Mg Tablet) 600 mg PO Q6H PRN PRN PRN Reason: Pain Score 1-3 Last Admin: 07/22/20 08:33 Dose: 600 mg Documented by: Methylergonovine Maleate (Methylergonovine 0.2 Mg/Ml Ampul) 0.2 mg IM X1 PRN PRN Reason: Excess bleeding/uterine atony Last Admin: 07/20/20 11:04 Dose: 0.2 mg Documented by: Ondansetron HCl (Ondansetron 4 Mg/2 Ml Vial) 4 mg IV Q4H PRN PRN PRN Reason: Nausea Oxycodone HCl (Oxycodone 5 Mg Tablet) 5 - 10 mg PO Q4H PRN PRN PRN Reason: Pain Score 4-10 Senna/Docusate Sodium (Senna/Docusate Sodium 1 Tablet) 1 - 2 tablet PO DAILY PRN PRN PRN Reason: Constipation Simethicone (Simethicone 80 Mg Tablet) 80 mg PO PCHS PRN PRN Reason: Indigestion/Stomach pain Sodium Chloride (0.9% Saline Lock 10 Ml Syringe) 5 - 15 ml IV UD PRN PRN Reason: SALINE FLUSH Zolpidem Tartrate (Zolpidem Tartrate 5 Mg Tablet) 5 mg PO QHS PRN PRN PRN Reason: Insomnia Medical Necessity - Tobacco Use Smoking Status: Never smoker Assessment/Plan day 2 status post vacuum-assisted vaginal delivery. Pain well controlled. Bottlefeeding. Desires OCP for control. Okay to discharge home today
== END 2020-07-22 11:00 | disposition home or self-care (01) | DRG 807 ==
PROVIDERS: Admitting Provider Obstetrics & Gynecology; Referring Provider Obstetrics & Gynecology; Visit Provider Obstetrics & Gynecology
DX: O75.81 Maternal exhaustion complicating labor and delivery (principal); Z37.0 Single live birth; O75.9 Complication of labor and delivery, unspecified; O12.04 Gestational edema, complicating childbirth; Z3A.39 39 weeks gestation of pregnancy
CPT/HCPCS: 59025; 59050; 85025; 86850; 86900; 86901; 99218; J7120; A4216; G0378; J2405; J3490

== ENCOUNTER → 2020-08-31 11:52 | Outpatient (CLI) | payer BC, SELFPAY ==
[2020-07-19 07:31] VITALS: BMI 35.9
[2020-09-03 13:24] LABS: HPV Reflexed? NOT INDICATED
== END ==
PROVIDERS: Visit Provider Obstetrics & Gynecology
DX: Z12.4 Encounter for screening for malignant neoplasm of cervix (principal)
CPT/HCPCS: 88175; G0145

== ENCOUNTER → 2022-10-11 | Outpatient (CLI) | payer OTHER, SELFPAY ==
[2022-10-11 10:36] LABS: Hematocrit 31.9 % (37-47); Hemoglobin 10.5 g/dL (12.0-15.0); Mean Corp Hgb Conc 32.9 g/dL (32-36); Mean Corpuscular Hgb 30.8 pg (27.0-32.0); Mean Corpuscular Volume 93.5 fL (81-99); Mean Platelet Vol. 10.1 fl (6.2-12.0); Platelet Count 283 K/mm3 (150-450); RBC Distribution Width CV 12.6 % (11.6-14.6); Red Blood Count 3.41 M/mm3 (4.2-5.4)
== END | disposition home or self-care (01) ==
PROVIDERS: Visit Provider Obstetrics & Gynecology
DX: Z34.83 Encounter for supervision of other normal pregnancy, third trimester (principal)
CPT/HCPCS: 85027

== ENCOUNTER 2022-10-13 19:02 | Inpatient (IN) | payer OTHER, SELFPAY ==
[2022-10-13] VITALS (20 sets, daily range): BP systolic 108–170; BP diastolic 59–106; PULSE 67–94; TEMP 36.7–37.1; O2SAT 89–100; BMI 36.1
--- NOTE | 2022-10-13 18:36 | PCM.HP.BLA ---
History and Physical Date of Admission: 10/13/22 HPI: 32-year-old G2, P1 at 38/3 weeks, TRAVIS 10/24/2022, by LMP, presenting with leaking of fluid. Reports pink-tinged fluid. Denies regular contractions. Reports movement. Denies headache or vision changes, chest pain or shortness of breath, nausea or vomiting, diarrhea or constipation, fevers or chills. complicated by: Left renal calculus measuring 1.8 mm. Requiring follow-up pediatric urology . Depression. REGISTERED OCCUPATIONAL THERAPIST history: G1: 39-week G2: Current Medical history: 1. Depression Surgical history: Denies Medications: 81 mg aspirin, sertraline 50 mg Allergies: Penicillin causes nausea, vomiting and diarrhea Family history: Noncontributory. No history of blood clots or bleeding disorders Social history: Denies tobacco, alcohol, drug use Review of system: Negative otherwise stated above Physical exam: Vital signs pending General: No acute distress HEENT: Normal cephalic/atraumatic, PERRLA Cardiorespiratory: No increased effort Abdomen: Soft, nontender, gravid Extremities: No edema Neurologic: Cranial nerves II through XII grossly intact, no focal deficits Musculoskeletal: Strength 5 out of 5 throughout extremities Cervical exam: heart rate: 125/mod terri/+accel/no decel [place]: q5 Assessment/plan: 32-year-old G2, P1 at 38/3 weeks, TRAVIS 10/24/2022, by LMP, presenting with leaking of fluid. complicated by: Left renal calculus measuring 1.8 mm. Requiring follow-up pediatric urology . Depression. ?Left renal calculus measuring 1.8 mm. Has been evaluated by MFM. Requiring follow-up pediatric urology . ?GBS positive -ROM pending. If positive will keep for prelabor rupture of membranes. Start ancef for GBS prophylaxis. If unchanged will augment with pitocin after 4 hours antibiotics.
[2022-10-13 19:01] LABS: ROM Internal Control Test YES-OK TO RESULT pt. (Internal QC)
[2022-10-13 19:02] LABS: ROM Patient Test POSITIVE (Negative)
[2022-10-13] MEDS: Cefazolin 2 GM in 0.9% Normal Saline 100 ML IV (19:40)
[2022-10-13 19:56] LABS: Absolute Lymphocyte Count 2.03 X10^3/uL (0.83-4.51); Absolute Neutrophil Count 6.3 X10^3/uL (2.0-7.7); Basophil# 0.01 X10^3/uL; Basophil% 0.1 % (0-1); Eosinophil# 0.01 X10^3/uL; Eosinophils% 0.1 % (0-5); Hemoglobin 10.3 g/dL (12.0-15.0); Lymphocyte # 2.03 X10^3/ul (0.83-4.51); Lymphocyte % 22.6 % (19-41); Mean Corp Hgb Conc 33.2 g/dL (32-36); Mean Corpuscular Hgb 30.6 pg (27.0-32.0); Monocyte# 0.55 X10^3/uL; Monocyte% 6.1 % (0-10); NRBC Flagged by Analyzer 0 % (0-5); Neutrophil # 6.29 X10^3/uL (2.7-7.7); Neutrophil % 70.1 % (47-70); Platelet Count 285 K/mm3 (150-450); RBC Distribution Width CV 12.6 % (11.6-14.6); RBC Distribution Width SD 41.8 fl (35.1-43.9); Red Blood Count 3.37 M/mm3 (4.2-5.4)
[2022-10-13] MEDS: Lactated Ringers 1,000 ML 50 ML IV (20:25)
[2022-10-13] MEDS: LACTATED RINGERS 500 ML 999 ML IV (23:04)
[2022-10-13] MEDS: fentaNYL-bupivacaine (epidural) 100 ML BAG EPIDURAL (23:49)
[2022-10-14] VITALS (53 sets, daily range): BP systolic 98–136; BP diastolic 46–83; PULSE 58–87; RESP 14–18; TEMP 36.3–37.2; O2SAT 90–100
[2022-10-14] MEDS: Cefazolin 1 GM/50 ML BAG IV (03:08)
[2022-10-14] MEDS: Lactated Ringers 1,000 ML 200 ML IV (04:28)
[2022-10-14] MEDS: fentaNYL-bupivacaine (epidural) 100 ML BAG EPIDURAL (04:28)
--- NOTE | 2022-10-14 07:21 | PN.OBGYN_ITS ---
Subjective Subjective Comfortable with epidural. Objective Data Objective Data Vital Signs: Vital Signs Temp Pulse BP Pulse Ox 98.9 F 77 125/59 H 99 10/14/22 06:44 10/14/22 06:44 10/14/22 06:44 10/14/22 04:22 Weight: 95.424 kg Body Mass Index (BMI) 36.1 Intake & Output: Intake and Output for Last 24 Hours 10/12/22 10/13/22 10/14/22 23:59 23:59 23:59 Intake Total 742.5 / 742.5 917.5 / 917.5 Balance 742.5 / 742.5 917.5 / 917.5 Lab / Micro Data Result Diagrams: 10/13/22 19:40 Labs: Laboratory Results - last 24 hr 10/13/22 18:43: Vag Amniotic Fld Detect POSITIVE H 10/13/22 19:40: WBC 9.0, RBC 3.37 L, Hgb 10.3 L, Hct 31.0 L, MCV 92.0, MCH 30.6, MCHC 33.2, RDW Std Deviation 41.8, RDW Coeff of [place] 12.6, Plt Count 285, MPV 10.0, Immature Gran % (Auto) 1.000 H, Neut % (Auto) 70.1 H, Lymph % (Auto) 22.6, [place] % (Auto) 6.1, Eos % (Auto) 0.1, Baso % (Auto) 0.1, Absolute Neuts (auto) 6.3, Absolute Lymphs (auto) 2.03, Nucleated RBC % 0 10/13/22 19:40: Blood Type O POSITIVE, Antibody Screen NEGATIVE Physical Exam Const alert, oriented x3 and no apparent distress Resp normal respiratory effort Cardio regular rate GI soft to palpation and non-tender Inspection: gravid Narrative: 9 cm, AROM forebag clear fluid Extremity no pedal edema NST FHR Rate Baby A Baseline: 125 Variability:: Moderate Accelerations:: None Decelerations:: None FHR Category:: Category I Assessment & Plan (1) and not yet delivered: PLAN: at 38/4 weeks admitted for prelabor rupture membranes. Augmented with Pitocin at this time. Forebag ruptured this morning. Continue augmentation.
[2022-10-14] MEDS: Oxytocin 10 UNITS/ML Vial IM (08:37)
[2022-10-14] MEDS: Oxytocin 15 Units/NS 250ml 15 UNITS/250 ML IV.SOLN 83 UNITS IV (08:37)
--- NOTE | 2022-10-14 08:44 | EX.PCM.OBRPT ---
Vaginal Delivery Operative Information Date of Procedure: 10/14/22 Pre-Operative Diagnosis: Kennedy intrauterine , prelabor rupture membranes Post-Operative Diagnosis: Kennedy intrauterine , prelabor rupture membranes Surgery / Procedure Performed: Spontaneous Vaginal Delivery Type of Anesthesia: Epidural Estimated Blood Loss: 400cc Findings Description of Procedure: Spontaneous vaginal delivery of viable infant male. Nuchal cord x1, loose, reduced. Baby to mom. Cord clamped and cut. Second-degree laceration repaired in usual fashion, hemostatic. Spontaneous delivery of placenta. A Gender: Male (1 minute): 8 (5 minute): 9 Complication Complications: None
[2022-10-14] MEDS: Acetaminophen 500 MG Tablet 1000 MG PO ×2 (11:10→18:34)
--- NOTE | 2022-10-14 13:56 | NURSING ---
1330 Pt out of bed, Up to bathroom. Demonstrated heber care. Pt gate steady. Returned to chair.
[2022-10-14] MEDS: Ibuprofen 600 MG Tablet PO ×2 (15:24→22:00)
[2022-10-14] MEDS: Sertraline 50 MG Tablet PO (22:00)
[2022-10-15] MEDS: Acetaminophen 500 MG Tablet 1000 MG PO ×2 (01:33→08:18)
[2022-10-15 04:18] VITALS: BP 117/65; PULSE 88; RESP 16; TEMP 36.6; O2SAT 97
[2022-10-15 04:19] VITALS: BP 117/65; PULSE 88
[2022-10-15 04:20] VITALS: PULSE 74; O2SAT 97
[2022-10-15] MEDS: Ibuprofen 600 MG Tablet PO (04:26)
--- NOTE | 2022-10-15 07:12 | PN.OBGYN_ITS ---
Subjective Subjective No overnight complaints Objective Data Objective Data Vital Signs: Vital Signs Temp Pulse Resp BP Pulse Ox O2 Del Method 97.9 F 74 16 117/65 97 Room Air 10/15/22 04:18 10/15/22 04:20 10/15/22 04:18 10/15/22 04:19 10/15/22 04:20 10/15/22 04:18 Oxygen Delivery Method Room Air Weight: 210 lb 6 oz Body Mass Index (BMI) 36.1 Intake & Output: Intake and Output for Last 24 Hours 10/13/22 10/14/22 10/15/22 23:59 23:59 23:59 Intake Total 742.5 / 742.5 2557.5 / 2557.5 Output Total 1960 / 1959 Balance 742.5 / 742.5 597.5 / 597.5 Lab / Micro Data Result Diagrams: 10/13/22 19:40 Physical Exam Const alert, oriented x3, no apparent distress, average body habitus, healthy appearing and well nourished HEENT normocephalic and moist oral mucous membranes Eyes PERRL Neck full ROM Resp normal respiratory effort, no retractions and no use of accessory muscles Extremity normal to inspection, full ROM and no clubbing, cyanosis or edema Neuro moves all extremities and no focal motor deficits Psych mental status grossly normal, affect normal, speech normal and activity/motor behavior normal Assessment & Plan (1) Vaginal delivery: PLAN: day 1. Formula feeding. Pain well controlled. Home today if okay with casting inspector
--- NOTE | 2022-10-15 07:15 | DS.PCM_ITS ---
Discharge Summary Date of Admission: 10/13/22 Date of Discharge: 10/15/22 Summary: Patient arrived on 10/13/2022 with spontaneous rupture membranes. Subsequently delivered on 10/14/2022 vaginally. Routine recovery and discharged home on 10/15/2022 Meaningful Use Info Meaningful Use Diagnoses (Choose all that apply): None applicable Discharge Plan Admission Admit Date/Time: 10/13/22 19:02 Primary Reason for Your Visit: Spontaneous rupture membranes Attending Provider: Casandra Polanco Primary Care Provider: Care Physician,Ellen Primary Instructions Additional Instructions / Restrictions: Regular diet. Weightbearing as tolerated. Okay to shower. No intercourse for 4 to 6 weeks. Call if fevers, chills, chest pain, shortness of breath. Follow- up 4 to 6 weeks Discharge Orders/Prescriptions Prescriptions: No Action Tablet 1 tab PO DAILY sertraline [Zoloft] 50 mg Tablet 50 mg PO DAILY Referrals / Follow Up: Care Physician,No Primary [Primary Care Provider] - Disposition Disposition (needs filled in before D/C Order can be placed): Home, Self Care
[2022-10-15 09:36] VITALS: BP 127/63; PULSE 93; O2SAT 98
[2022-10-15 09:39] VITALS: BP 127/63; PULSE 93; RESP 16; TEMP 36.7; O2SAT 98
--- NOTE | 2022-10-15 12:40 | CASEMGMT ---
Social Work Brief Assessment Labor and Delivery Unit Patient Address: [address], [place] [address] Phone number: [phone] Date of Referral/Notification: 10.14.2022 Time of Referral: [id number] Referred By: Dr. Byrd; Dr. Kaitlin Polanco Date of Intervention: 10.15.22 Time of Intervention: Approximately 1230 Reason for Referral: Maternal history of depression, anxiety, and depression Informant: Medical record including prior social work assessment; mother of baby (MOB) Rupal Flood and father of baby (FOB) Rex Flood. History: MIRIAN is a 32-year-old female who is 2, para 1 now 2 after delivering baby boy Boby Flood on 10.14.2022. Birthweight for Boby, 8 pounds 13 ounces; Apgars 8 and 9 at 1 and 5 minutes of life. MIRIAN is to the FOB and no indication of domestic violence; MIRIAN also denied abuse or safety concerns upon admission to hospital. Also at home is 2 year old daughter, Jennifer (07.20.2020). MOB and FOB are both gainfully employed. 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 MIRIAN is reported to have history of depression, anxiety, and some depression after Jennifer was born. MIRIAN reports was on Zoloft prior to becoming with Boby, and has decided stay on this during the and as well as in the timeframe. MOB reports to feel Zoloft works well. MIRIAN does have history of prescription for Xanax to take as needed, though no reports of such during this . No reported history of substance use issues. Assessment: Met with MOB and FOB in the room. Introduced to self and role, reintroduced from last delivery. MOB and FOB sitting on couch, and FOB attending to baby, changing diaper. MOB and FOB both engaged in conversation. MOB held good eye contact, smiling, pleasant, full affect, euthymic mood. MOB reports intent to remain on Zoloft in the timeframe, and reports to feel much better as compared to last and immediate experience. MOB reports to feel a bray already with Boby, which is different than the bonding process with Jennifer. MOB reports to have adequate support at home going. FOB has a month off of work to help, and multiple family members live close by and are willing to help out. MOB and FOB deny any concerns with home going or basic needs. No voiced concerns by staff regarding parent/child interactions or bonding. Provided MOB with information on mood and anxiety disorders, resources for support and after care included. Plan: MOB and baby will return home at time of discharge. MOB will have FOB at home for 4 weeks to help out in this transitional time. MOB has been provided with resources on mood and anxiety disorders. No further needs requested or indicated. -RACHELLE Vega, [employer] ASSISTANT
== END 2022-10-15 12:45 | disposition home or self-care (01) | DRG 807 ==
LOC: WP 10-14 08:29 → WPOUT 10-15 12:02
PROVIDERS: Admitting Provider Student in an Organized Health Care Education/Training Program; Visit Provider Student in an Organized Health Care Education/Training Program
DX: O69.81X0 Labor and delivery complicated by cord around neck, without compression, not applicable or unspecified (principal); Z37.0 Single live birth; O99.344 Other mental disorders complicating childbirth; B95.1 Streptococcus, group B, as the cause of diseases classified elsewhere; F32.A Depression, unspecified; Z3A.38 38 weeks gestation of pregnancy; O70.1 Second degree perineal laceration during delivery; O99.824 Streptococcus B carrier state complicating childbirth; O99.892 Other specified diseases and conditions complicating childbirth; N20.0 Calculus of kidney
CPT/HCPCS: 59025; 59050; 84112; 85025; 86850; 86900; 86901; 99221; J7120; G0378